=== PATIENT | male | born 1945 | race African-American/Black ===

== ENCOUNTER 2017-02-15 18:23 | Emergency (ER) | payer BC ==
[2017-02-15 20:11] LABS: BILIRUBIN,URINE NEGATIVE (NEG); CLARITY,URINE CLEAR; COLOR,URINE YELLOW; GLUCOSE,URINE NEGATIVE (NEG); NITRITE,URINE NEGATIVE (NEG); PROTEIN,URINE NEGATIVE (NEG-TRACE); UROBILINOGEN,URINE 0.2 mg/dL (0.2 mg/dL)
[2017-02-15 20:21] LABS: BACTERIA,URINE 0 /HPF (0-FEW); HYALINE CASTS, URINE OCCASIONAL /HPF; SQUAMOUS EPITHELIAL CELL,UR OCC /LPF; WBC,URINE OCC /HPF (0-4)
== END 2017-02-15 23:57 | disposition home or self-care (01) ==
LOC: ER 18:23
DX: N45.2 Orchitis (principal); Z85.46 Personal history of malignant neoplasm of prostate
CPT/HCPCS: 76870; 81001; 99285-25

== ENCOUNTER 2017-09-02 09:55 | Outpatient (CLI) | payer BC ==
[2017-09-02 10:24] LABS: ADD MAN DIFF? NO
[2017-09-02 10:28] LABS: BASO # 0.1 x10^3/uL (0.0-0.2); BASO % 1 % (0-3); EOS # 0.2 x10^3/uL (0.0-0.7); EOS % 3 % (0-3); HEMATOCRIT 39.8 % (39.0-53.0); HEMOGLOBIN 13.4 g/dL (13.0-17.5); LYMPH # 1.2 x10^3/uL (1.0-4.8); LYMPH % 24 % (24-48); MEAN CORPUSCULAR HEMOGLOBIN 28 pg (25-35); MEAN CORPUSCULAR HGB CONC 34 g/dL (31-37); MEAN CORPUSCULAR VOLUME 85 fL (79-100); MONO # 0.7 x10^3/uL (0.0-1.1); MONO % 15 % (0-9); NEUT # 2.7 x10^3uL (1.8-7.7); NEUT % 56 % (31-73); PLATELET COUNT 246 x10^3/uL (140-400); RED BLOOD COUNT 4.71 x10^6/uL (4.30-5.70); RED CELL DISTRIBUTION WIDTH 12.6 % (11.5-14.5); WHITE BLOOD COUNT 4.8 x10^3/uL (4.0-11.0)
[2017-09-02 10:36] LABS: INR 1.2 (0.8-1.1); PARTIAL THROMBOPLASTIN TIME 34 SEC (24-38); PROTHROMBIN TIME PATIENT 14.4 SEC (11.7-14.0)
[2017-09-02] MEDS ORDERED: LIDOCAINE 1%/EPI 1:100,000 20 ML VIAL. (10:43)
[2017-09-02] MEDS ORDERED: LIDOCAINE 2%/EPI 1:100,000 20 ML VIAL. IJ (11:15)
[2017-09-02] MEDS ORDERED: fentaNYL PF VIAL 100 MCG/2 ML VIAL (11:19)
[2017-09-02] MEDS ORDERED: MIDAZOLAM HCL/PF 2 MG/2 ML VIAL. (11:19)
[2017-09-02] MEDS: MIDAZOLAM HCL/PF 2 MG/2 ML VIAL. IV (11:55)
[2017-09-02] MEDS: fentaNYL PF VIAL 100 MCG/2 ML VIAL IV (11:55)
[2017-09-02] MEDS: LIDOCAINE 1%/EPI 1:100,000 20 ML VIAL. INJ (11:55)
== END 2017-09-02 12:30 | disposition home or self-care (01) ==
LOC: INTRAD 09:55
DX: Z45.2 Encounter for adjustment and management of vascular access device (principal); C78.7 Secondary malignant neoplasm of liver and intrahepatic bile duct; Z85.46 Personal history of malignant neoplasm of prostate; Z79.899 Other long term (current) drug therapy
CPT/HCPCS: 36415; 36561; 76937; 77001; 85025; 85610; 85730; 99152; 99153; C1751; C1788; C1892; J0690; J2250; J3010; J3490